=== PATIENT | male | born 1955 | race Caucasian/White ===

== ENCOUNTER 2018-12-21 10:21 | Observation (INO) | payer OTHER ==
--- NOTE | 2018-12-20 08:49 | GHP ---
[f rep st] PREOP HISTORY AND PHYSICAL DATE OF ADMISSION: 12/21/2018 ADMISSION DIAGNOSIS: Benign prostatic hypertrophy with urinary obstruction. HISTORY OF PRESENT ILLNESS: This is a 63-year-old gentleman, who has been evaluated because of micro hematuria and on evaluation, it was noted that he had BPH with obstruction that was previously treate d with embolization and has somewhat failed. He has had erectile dysfunction treated with Cialis nilda ly and he also had the GainsWave treatment in 2018. Cystoscopy in the office revealed intravesical l obe of the prostate with obstruction and hypervascular changes of the bladder wall associated with th e prior cystitis. He had had no tumor, stones, or foreign bodies. I reviewed the cystoscopic image. This showed some inflammatory polyps of the prostate and +3 to 4 trabeculation of the bladder and a large intravesical lobe of the prostate and some mild cystitis. He has had a CAT scan of the abdome n and pelvis on 11/16/2018. The impression is that he had a small 2 mm stone in the left kidney. Mckinley d circumferential thickening of the bladder wall secondary to change of bladder outlet obstruction an d prostatomegaly and no evidence of ureteral, bladder, or kidney masses. PAST MEDICAL HISTORY: BPH. He has had hypertension, kidney stones and microscopic hematuria. PAST SURGICAL HISTORY: Prostatic embolization, pacemaker. MEDICATIONS: Doxazosin, Eliquis, potassium chloride, valsartan with hydrochlorothiazide. ALLERGIES: None. FAMILY HISTORY: Renal cancer, liver disease, Parkinson's. SOCIAL HISTORY: Nondrinker, nonsmoker. No substance use. REVIEW OF SYSTEMS: Negative cardiac, respiratory, GI, and endocrine. PHYSICAL EXAMINATION: VITAL SIGNS: Stable. CHEST: Clear. HEART: Regular rate and rhythm. ABDOM EN: Normal. No organomegaly, rebound or guarding. LOWER EXTREMITIES: Normal. LABORATORY DATA: He has had a PSA as of 11/20/2018; it was 2.1, and a cystoscopy and CAT scan as not ed above. ASSESSMENT: At the present time, he is admitted for a TURP. Indications, complications and options have been discussed. Written and verbal consent have been obtained. He appears to be well informed on this matter. /[id number]/MODL
[2018-12-21] MEDS ORDERED: LIDOCAINE 2% JELLY 20 ML (UROJECT) ONE (10:36)
[2018-12-21] MEDS ORDERED: LR 1,000 ML IV ONE (10:55)
--- NOTE | 2018-12-21 11:16 | PDANEPAE ---
ANE History of Present Illness here for TURP ANE Past Medical History - Cardiovascular History Hx Hypertension: Yes Hx Arrhythmias: Yes Hx Chest Pain: No Hx Coronary Artery / Peripheral Vascular Disease: No Hx CHF / Valvular Disease: No Hx Palpitations: No Cardiovascular History Comment: cryoablation for tachycardia. Pacemaker for bradycardis. hx Afib. - Pulmonary History Hx COPD: No Hx Asthma/Reactive Airway Disease: No Hx Recent Upper Respiratory Infection: No Hx Oxygen in Use at Home: No Hx Sleep Apnea: No Sleep Apnea Screening Result - Last Documented: Positive - Neurologic History Hx Cerebrovascular Accident: No Hx Seizures: No Hx Dementia: No - Endocrine History Hx Diabetes: Yes Endocrine History Comment: controlled with metformin - Renal History Hx Renal Disorders: No Renal History Comment: kidney stone - Liver History Hx Hepatic Disorders: No - Neurological & Psychiatric Hx Hx Neurological and Psychiatric Disorders: No - Cancer History Hx Cancer: No - Congenital Disorder History Hx Congenital Disorders: No - GI History Hx Gastrointestinal Disorders: No - Other Health History Other Health History: none - Chronic Pain History Chronic Pain: No - Surgical History Prior Surgeries: PPM placed 2014. cryotic ablation 2014. prostate artery embolization ANE Review of Systems Review of systems is: negative Review of Systems: - Exercise capacity Exercise capacity: >=4 METS METS (RN): 4 METS - Pacemaker Pacemaker [employer] C[employer]: [employer] Pacemaker Mode: DDD Date Pacemaker Last Checked: 12/18/2018 ANE Patient History - Allergies Allergies/Adverse Reactions: No Known Allergies Allergy (Verified 12/19/18 14:08) - Home Medications Home medications: home medication list seen and reviewed Home Medications: Apixaban [Eliquis] 5 mg PO BID 12/19/18 [Last Taken 12/14/18] Doxazosin Mesylate 2 mg PO BID 12/19/18 [Last Taken 12/20/18] Glucosamine/Chondroitin [Glucosamine/Chondroitin (*)] 1 each PO BID 12/19/18 [ Last Taken 12/20/18] Herbals/Supplements -Info Only 1 ea PO DAILY 12/19/18 [Last Taken 12/20/18] Multivitamins [Multivitamin (*)] 1 each PO DAILY 12/19/18 [Last Taken 12/20/18] Potassium Chloride [Klor-Con 8] 8 meq PO BID 12/19/18 [Last Taken 12/20/18] Tadalafil 5 mg PO DAILY 12/19/18 [Last Taken 12/20/18] Tamsulosin HCl [Flomax 0.4 MG (*)] 0.4 mg PO DAILY 12/19/18 [Last Taken 12/20/18 ] Valsartan/Hydrochlorothiazide [Valsartan-Hctz 320-25 mg Tab] 1 each PO DAILY 04/01 [Last Taken 12/20/18] Vitamin B Complex [Vitamin B Complex (OTC)] 1 each PO DAILY 12/19/18 [Last Taken 12/20/18] metFORMIN HCL [Glucophage 500 mg (*)] 500 mg PO BIDMEAL 12/19/18 [Last Taken 05/02] - NPO status NPO Status: no food or drink >8 hours NPO Since - Liquids (Date): 12/20/18 NPO Since - Liquids (Time): 23:55 NPO Since - Solids (Date): 12/20/18 NPO Since - Solids (Time): 23:55 - Smoking Hx Smoking Status: Never smoked - Family Anes Hx Family Hx Anesthesia Complications: none ANE Labs/Vital Signs - Vital Signs Vital Signs: reviewed preoperatively; see RN documention for details Blood Pressure: 179/101 Heart Rate: 71 Respiratory Rate: 16 O2 Sat (%): 93 Height: 187.96 cm Weight: 108.862 kg ANE Physical Exam - Airway Neck exam: FROM Mallampati Score: Class 1 - Pulmonary Pulmonary: no respiratory distress - Cardiovascular Cardiovascular: regular rate and rhythym - ASA Status ASA Status: II ANE Anesthesia Plan Anesthesia Plan: GA w LMA
[2018-12-21] MEDS ORDERED: ceFAZolin 2 GM/DEXTROSE 100 ML IV ONE (11:17)
--- NOTE | 2018-12-21 11:17 | PDHPUP ---
History & Physical Update H&P update statement: This history and physical update is based on an assessment of the patient which was completed after admission or registration (within 24 hours), but prior to the surgery/procedure. H&P update: no change in patient's condition since H&P completed
[2018-12-21] MEDS ORDERED: MIDAZOLAM 2 MG/2 ML VIAL IVP ONE (11:24)
[2018-12-21] MEDS ORDERED: PROPOFOL/EMULSION 500 MG/50 ML BOTTLE IV ONE (11:36)
[2018-12-21] MEDS ORDERED: fentaNYL 100 MCG/2 ML INJ ONE ×3 (11:38→13:36)
[2018-12-21] MEDS ORDERED: ONDANSETRON 4 MG/2 ML VIAL ONE (11:50)
[2018-12-21] MEDS ORDERED: DEXAMETHASONE 4 MG/ML VIAL ONE (11:50)
[2018-12-21] MEDS ORDERED: NS 500 ML IV PRN (11:58)
[2018-12-21] MEDS ORDERED: DEXAMETHASONE 4 MG/ML VIAL IVP PRN (11:58)
[2018-12-21] MEDS ORDERED: ALBUTEROL 3 ML DEYVIAL IH PRN (11:58)
[2018-12-21] MEDS ORDERED: NALOXONE HCL 0.4 MG/ML INJ IVP PRN (11:58)
[2018-12-21] MEDS ORDERED: ONDANSETRON 4 MG/2 ML VIAL IVP PRN ×2 (11:58→13:02)
[2018-12-21] MEDS ORDERED: HYDROCODONE/APAP 5/325 TAB PO PRN (13:00)
--- NOTE | 2018-12-21 13:00 | POSTOPPROG ---
Post Op Note Date of Operation: 12/21/18 (dictated) Surgeon: Bimal Lubin Anesthesia: LMA Pre-op Diagnosis: bph / retention Procedure: Turp Inf/Abcess present in the surg proc area at time of surgery?: No EBL: 50-100 Drains: Other (garcia 90 + ml in balloon) Specimen(s): sent
[2018-12-21] MEDS ORDERED: ACETAMINOPHEN 325 MG TAB PO PRN (13:02)
[2018-12-21] MEDS ORDERED: ONDANSETRON DISINTEGRATING 4 MG TAB PO PRN (13:02)
[2018-12-21] MEDS ORDERED: HYDROmorphONE/DILAUDID 1 MG/ML INJ IVP PRN (13:02)
[2018-12-21] MEDS ORDERED: ZOLPIDEM TARTRATE 5 MG TAB PO PRN (13:02)
--- NOTE | 2018-12-21 13:14 | GOP ---
[f rep st] OPERATIVE REPORT DATE OF OPERATION: 12/21/2018 SURGEON: Bimal Lubin MD PREOPERATIVE DIAGNOSIS: 1. Benign prostatic hypertrophy. 2. Urinary retention and obstruction with frequency and urgency. POSTOPERATIVE DIAGNOSIS: 1. Benign prostatic hypertrophy. 2. Urinary retention and obstruction with frequency and urgency. PROCEDURE PERFORMED: Transurethral resection of the prostate. FINDINGS: DESCRIPTION OF PROCEDURE: After undergoing general anesthesia and being prepped and draped in normal sterile fashion, appropriate time-out, the scope was passed into his bladder under direct vision. Lon murdock had a large lateral lobar hypertrophy with an intravesical lobe. No tumors were identified in the bladder. At that point, I began taking down the intravesical lobe of the prostate with a bipolar ins trumentation, and then the right lateral lobe and right portion of the posterior lobe resected. Left lateral lobe and left portion of the posterior lobe resected. Bladder was Ellik 'd free of all chip s and clots. Visualization revealed no residual chips or clots. Ureteral orifices preserved. Exter nal sphincter approximated at the midline symmetrically. A 22 three-way catheter passed to the [facility] er over a Mandarin guide, 60 cc balloon inflated, traction placed, and irrigated clear. He will be a dmitted for postoperative care. I will discuss the findings with his . Specimen sent for pathol cynthia. /[id number]/MODL
[2018-12-21] MEDS ORDERED: D5W 1/2 NS W/ 20 KCl/L 1,000 ML IV SCH (13:15)
--- NOTE | 2018-12-21 13:25 | POSTANESTH ---
Post Anesthetic Evaluation Cardiovascular Status: Similar to Pre-Op Cond Respiratory Status: Normal, Stable Level of Consciousness/Mental Status: Mildly Sleepy, Arousable Pain Control: Adequate, Prn Tx Ordered Nausea/Vomiting Control: Adequate, Prn Tx Ordered Complications Possibly Related to Anesthesia: None Noted
[2018-12-21] MEDS: fentaNYL 100 MCG/2 ML INJ IVP PRN ×2 (13:39→13:45)
[2018-12-21] MEDS ORDERED: HYDROmorphONE/DILAUDID 2 MG/ML INJ ONE (13:46)
[2018-12-21] MEDS: HYDROmorphONE/DILAUDID 2 MG/ML INJ IVP PRN ×5 (13:48→14:50)
[2018-12-21] MEDS ORDERED: OPIUM/BELLADONNA ALKALO SUPP PR ONE (14:00)
[2018-12-21] MEDS: OPIUM/BELLADONNA ALKALO SUPP PR PRN ×3 (14:01→22:20)
[2018-12-21] MEDS ORDERED: OXYCODONE/APAP 5/325 TAB ONE (14:58)
[2018-12-21] MEDS: OXYCODONE/APAP 5/325 TAB PO PRN ×2 (14:59→19:49)
--- NOTE | 2018-12-22 09:15 | SOAPPROG ---
SOAP Progress Note Assessment/Plan: Assessment: BPH with urinary obstruction Acute POD #1, plan for cath removal and dc if pt voiding Plan: dc garcia, dc if pt voids 12/22/18 10:29 Subjective: no pain , doing well Objective: Vital Signs Temp Pulse Resp BP Pulse Ox 35.9 C L 66 18 147/94 H 97 12/22/18 08:00 12/22/18 08:00 12/22/18 08:00 12/22/18 08:00 12/22/18 08:00 12/21/18 12/22/18 12/23/18 05:59 05:59 05:59 Intake Total 2537 Output Total 72453 Balance -8625 Physical Exam - Physical Exam General Appearance: alert Neck: normal inspection Respiratory: No respiratory distress Cardiac/Chest: regular rate, rhythm Neuro/Psych: alert, oriented x 3 ICD10 Worksheet Patient Problems: Problems Problem Status Onset BPH with urinary obstruction Acute - ICD10 Problem Qualifiers (1) BPH with urinary obstruction
--- NOTE | 2018-12-22 11:34 | ASMTLACE ---
LACE Length of stay for Answers: 1 day current admission Acuity / Level of Answers: No Care: Did the patient have an inpatient admission? Comorbidities - select Answers: Diabetes (uncontrolled or all that apply controlled) Other Notes: heart disease, BPH, # of Emergency department Answers: 0 visits in the last 6 months Score: 3 Date Signed: 12/22/2018 11:33 AM Electronically Signed By:Katie Bassett RN
--- NOTE | 2018-12-22 11:38 | ASMTCMCOM ---
CM Note CM Note Notes: Patient chart reviewed. S/p turp. Seen per urology this am. Medically cleared for discharge to home. Post op follow up in office. No current needs identified Cm available should needs arise. Plan: Dc to home. Date Signed: 12/22/2018 11:37 AM Electronically Signed By:Katie Bassett RN
[2018-12-22 16:26] VITALS: BP 156/85
[2018-12-22] MEDS ORDERED: metFORMIN HCL 500 MG TAB PO SCH (18:00)
[2018-12-22] MEDS ORDERED: GLUCOSAMINE/CHONDROITIN CAP PO SCH (21:00)
[2018-12-22] MEDS ORDERED: POTASSIUM CHLORIDE 8 MEQ PO SCH (21:00)
[2018-12-23] MEDS ORDERED: TADALAFIL 5 MG PO SCH (09:00)
[2018-12-23] MEDS ORDERED: Herbals/Supplements -Info Only PO SCH (09:00)
[2018-12-23] MEDS ORDERED: HYDROCHLOROTHIAZIDE 25 MG TAB PO SCH (09:00)
[2018-12-23] MEDS ORDERED: VITAMIN B COMPLEX 1 EA CAP/TAB PO SCH (09:00)
[2018-12-23] MEDS ORDERED: VALSARTAN 160 MG TAB PO SCH (09:00)
[2018-12-23] MEDS ORDERED: MULTIVITAMINS 1 EACH TAB PO SCH (09:00)
== END 2018-12-22 18:22 | disposition home or self-care (01) ==
LOC: F3N 10:21 → F1N 14:52
PROVIDERS: ADMIT Specialist; ATTEND Specialist
PROC: 0VT08ZZ Resection of Prostate, Via Natural or Artificial Opening Endoscopic (ICD-10-PCS; principal; 2018-12-21 11:30)
DX: N40.1 Benign prostatic hyperplasia with lower urinary tract symptoms (principal); R35.0 Frequency of micturition; R31.29 Other microscopic hematuria; N13.8 Other obstructive and reflux uropathy; N20.0 Calculus of kidney; N52.9 Male erectile dysfunction, unspecified; R00.1 Bradycardia, unspecified; I10 Essential (primary) hypertension; E11.9 Type 2 diabetes mellitus without complications; I25.10 Atherosclerotic heart disease of native coronary artery without angina pectoris; Z79.01 Long term (current) use of anticoagulants; Z87.440 Personal history of urinary (tract) infections; Z87.442 Personal history of urinary calculi; Z95.0 Presence of cardiac pacemaker
CPT/HCPCS: 52601; G0378; J0690; J1100; J1170; J2250; J2405; J2704; J3010